=== PATIENT | female | born 1960 ===

== ENCOUNTER 2022-04-01 14:56 | Outpatient (CLI) | payer BC, SELFPAY ==
[2022-04-01 14:19] LABS: ESR 10 mm/hr (0-30)
[2022-04-01 14:43] LABS: C-Reactive Protein < 0.05 mg/dL (0.0-0.3)
== END 2022-04-01 14:57 | disposition home or self-care (01) ==
PROVIDERS: Visit Provider Internal Medicine Rheumatology
DX: M35.3 Polymyalgia rheumatica (principal); Z79.899 Other long term (current) drug therapy
CPT/HCPCS: 36415; 85652; 86140